=== PATIENT | male | born 1965 | race Caucasian/White ===

== ENCOUNTER → 2017-06-29 | Day surgery (SDC) | payer BC ==
[~2017-06-29] MED LIST: ATORVASTATIN CA10 MG PO; CHOLESTEROL PILL; FENTANYL CITRATE/PF 100MCG/2 ML INJ ONE; LIDOCAINE HCL 2% LOCAL INJ 5 ML SDV VIAL INJ ONE; MIDAZOLAM HCL 2 MG/2 ML VIAL ONE; PROPOFOL IV EMULSION 10 MG/ML 50 ML VIAL ONE; VITAMIN D3400 UNI1
--- NOTE | 2017-06-29 15:07 | Operative Report ---
DATE OF PROCEDURE: June 29, 2017 REFERRING PHYSICIAN: Dr. Faisal Lamb PROCEDURE PERFORMED: 1. Esophagogastroduodenoscopy with esophageal dilatation biopsies. 2. Colonoscopy with polypectomy. INDICATIONS FOR ESOPHAGOGASTRODUODENOSCOPY: Dysphagia, heartburn. INDICATIONS FOR COLONOSCOPY: Colorectal cancer screening. MEDICATION: Patient was done under MAC. Please see anesthesiologist's note. PROCEDURE: With the patient in lateral decubitus position, flexible fiberoptic Olympus gastroscope was introduced into the esophagus under direct visualization without any difficulty. Some longitudinal furrows and some concentric rings were noted in the esophagus, which were compatible with eosinophilic esophagitis, and biopsies were obtained. Two minute polyps were noted in the distal esophagus and biopsies were obtained. The esophagus was then dilated to size 52-[place] Mcbride. The scope was then advanced with ease into the stomach and mucosa overlying the antrum and the body revealed some patchy erythema and mild to moderate edema, and biopsies were obtained sent to stain for H. pylori. Some gastric polyps that were hyperplastic appearing were noted in the body and some were partially excised with cold biopsy forceps. The pylorus was of normal contour and shape. Was intubated with ease and the scope was advanced all the way to the 2nd portion of the duodenum. The scope was then withdrawn slowly. Mucosa overlying the proximal 2nd portion and the duodenal bulb appeared to be within normal limits. The scope was then withdrawn back into the stomach and retroflexed. The mucosa overlying the fundus and the cardia appeared to be within normal limits. The scope was then straightened out. The stomach was decompressed, the scope subsequently withdrawn. Patient tolerated the procedure well. IMPRESSION: 1. Rule out eosinophilic esophagitis. 2. Esophagus dilated to size 52-[place] Mcbride. 3. Distal esophageal polyps, biopsied. 4. Gastritis, biopsied. Biopsies sent stain for Helicobacter pylori. 5. Gastric polyps, some partially excised with a cold biopsy forceps. PLAN: Follow up histology. Initiate Protonix 40 mg 1 p.o. q.a.m. a.c. Patient was then turned around and after adequate lubrication of the anal canal, a flexible fiberoptic Olympus colonoscope was inserted into the rectum with ease and advanced all the way to the cecum. An approximately 4 mm sessile polyp was noted in the cecum that was snared and polypectomy site was hemoclipped prophylactically. The scope was then withdrawn slowly. One polyp was noted in the ascending colon that was hot biopsied. Three polyps were snared from the transverse colon. The descending and the sigmoid appeared to be within normal limits. Two polyps were hot biopsied from the rectum. The scope was then retroflexed into the distal rectum and small internal hemorrhoids were noted, none of which was actively bleeding. The scope was then straightened out. The rectosigmoid area as well as the distal rectal area were decompressed. Scope subsequently withdrawn. Patient tolerated procedure well. IMPRESSION: 1. Cecal polyp, snared. 2. Ascending colon polyp, hot biopsied. 3. Transverse colon polyps times 3, snared. 4. Rectal polyps times 2, hot biopsied. 5. Internal hemorrhoids, none actively bleeding. PLAN: Follow up histology. Initiate high-fiber, low-fat diet. Initiate high-fiber supplement. Patient will need a followup colonoscopy in 3 years. Job#: [id number] [place] cc:FAISAL LAMB MD
== END | disposition home or self-care (01) ==
LOC: OR 10:43
PROVIDERS: ATTEND Internal Medicine Gastroenterology
DX: Z12.11 Encounter for screening for malignant neoplasm of colon (principal); D12.0 Benign neoplasm of cecum; D12.3 Benign neoplasm of transverse colon; K62.1 Rectal polyp; K31.7 Polyp of stomach and duodenum; K29.70 Gastritis, unspecified, without bleeding; K20.9 Esophagitis, unspecified; K21.9 Gastro-esophageal reflux disease without esophagitis; K64.8 Other hemorrhoids; R00.1 Bradycardia, unspecified; I44.0 Atrioventricular block, first degree; R03.0 Elevated blood-pressure reading, without diagnosis of hypertension; Z01.810 Encounter for preprocedural cardiovascular examination; Z68.31 Body mass index [BMI] 31.0-31.9, adult; Z85.47 Personal history of malignant neoplasm of testis
CPT/HCPCS: 43239; 43450; 45384; 45385; 93005; J2001; J2250; 45378

== ENCOUNTER → 2019-04-04 | Outpatient (CLI) | payer BC ==
[~2019-04-04] MED LIST changes: -FENTANYL CITRATE/PF 100MCG/2 ML INJ ONE; -LIDOCAINE HCL 2% LOCAL INJ 5 ML SDV VIAL INJ ONE; -MIDAZOLAM HCL 2 MG/2 ML VIAL ONE; -PROPOFOL IV EMULSION 10 MG/ML 50 ML VIAL ONE
--- NOTE | 2019-04-04 15:20 | Diagnostic Imaging Report ---
Exam: Testicular ultrasound. Clinical History: Testicular nodule Findings: Sonographic evaluation of the testicles. The patient is status post right orchiectomy. The left testicle is normal in echogenicity and measures 4.9 x 2.0 x 3.7 cm. No intratesticular mass. The left epididymis measures 0.6 x 0.5 x 0.6 cm and appears unremarkable. Trace left hydrocele. Small left varicocele. No remarkable findings in the right testicle fossa. Impression: No testicular torsion. Trace left hydrocele. Small left varicocele. Signed by: Laura Dimas MD on 04/04/2019 3:16 PM
== END ==
LOC: US 13:07
PROVIDERS: ATTEND Family Medicine
DX: N43.3 Hydrocele, unspecified (principal); I86.1 Scrotal varices
CPT/HCPCS: 76870; 93976

== ENCOUNTER → 2019-10-08 | Day surgery (SDC) | payer BC, OTHER ==
[~2019-10-08] MED LIST changes: +EPHEDRINE SULFATE INJ 50 MG/ML VIAL ONE; +FENTANYL CITRATE/PF 100MCG/2 ML INJ ONE; +GLYCOPYRROLATE INJ 0.2 MG/ML VIAL ONE; +HYOSCYAMINE 0.125 MG TAB ONE; +KETAMINE HCL INJ 50 MG/ML 10 ML VIAL ONE; +LIDOCAINE HCL 2% LOCAL INJ 5 ML SDV VIAL INJ ONE; +MIDAZOLAM HCL 2 MG/2 ML VIAL ONE; +PROPOFOL IV EMULSION 10 MG/ML 20 ML VIAL ONE
[2019-10-08 10:40] VITALS: BP 116/75
--- NOTE | 2019-10-08 12:57 | Operative Report ---
DATE OF PROCEDURE: 10/08/2019 SURGEON: Bin Luna MD PROCEDURE: Colonoscopy with polypectomy. INDICATIONS FOR COLONOSCOPY: Surveillance colonoscopy, personal history of colon polyps. MEDICATIONS: The patient was done under MAC, please see anesthesiologist's note. PROCEDURE IN DETAIL: With the patient in the left lateral decubitus position, the flexible fiberoptic Olympus colonoscope was inserted into the rectum with ease and advanced all the way to the cecum. It was then withdrawn slowly, mucosa overlying the cecum and ascending colon appeared to be within normal limits. Two polyps were removed per cold biopsy forceps from the transverse colon. The descending colon appeared to be within normal limits. One polyp was hot biopsied from the sigmoid colon. The rectum appeared to be within normal limits. The scope was then retroflexed into the distal rectum and small internal hemorrhoids were noted, none of which was actively bleeding. The scope was then straightened out, it was subsequently withdrawn, and the patient tolerated the procedure well. IMPRESSION: 1. Transverse colon polyps x2, removed per cold biopsy forceps. 2. Sigmoid colon polyp, hot biopsied. 3. Internal hemorrhoids, none actively bleeding. PLAN: Follow up histology. Initiate high-fiber, low-fat diet. Initiate high-fiber supplement. The patient might benefit from a followup colonoscopy in 3 to 5 years. Bin Luna MD [facility] [place] /[id number] cc: Faisal Lamb MD
== END | disposition home or self-care (01) ==
LOC: OR 06:48
PROVIDERS: ATTEND Internal Medicine Gastroenterology
DX: Z09 Encounter for follow-up examination after completed treatment for conditions other than malignant neoplasm (principal); D12.3 Benign neoplasm of transverse colon; K64.8 Other hemorrhoids; K21.9 Gastro-esophageal reflux disease without esophagitis; E78.5 Hyperlipidemia, unspecified; Z91.013 Allergy to seafood; Z01.810 Encounter for preprocedural cardiovascular examination; Z01.812 Encounter for preprocedural laboratory examination; Z11.59 Encounter for screening for other viral diseases; Z85.47 Personal history of malignant neoplasm of testis
CPT/HCPCS: 45380; 45384; 87635; 93005; J2001; J2250; J2704; J3010

== ENCOUNTER 2020-04-26 13:32 | Emergency (ER) | payer BC ==
[~2020-04-26] VITALS: Ht 177.8 cm; Wt 90.7 kg
[~2020-04-26 13:32] MED LIST changes: -EPHEDRINE SULFATE INJ 50 MG/ML VIAL ONE; -FENTANYL CITRATE/PF 100MCG/2 ML INJ ONE; -GLYCOPYRROLATE INJ 0.2 MG/ML VIAL ONE; -HYOSCYAMINE 0.125 MG TAB ONE; -KETAMINE HCL INJ 50 MG/ML 10 ML VIAL ONE; -LIDOCAINE HCL 2% LOCAL INJ 5 ML SDV VIAL INJ ONE; -MIDAZOLAM HCL 2 MG/2 ML VIAL ONE; -PROPOFOL IV EMULSION 10 MG/ML 20 ML VIAL ONE
[2020-04-26 15:03] VITALS: BP 119/76
== END 2020-04-26 15:05 | disposition home or self-care (01) ==
LOC: ER 14:27
DX: U07.1 COVID-19 (principal); R06.02 Shortness of breath; R05 Cough
CPT/HCPCS: 99282

== ENCOUNTER → 2024-05-22 | Outpatient (REF) | payer BC ==
[~2024-05-22] MED LIST changes: +ALLOPURINOL100 MG PO; +LANSOPRAZOLE30 MG PO; +LOSARTAN POTAS100 MG PO
== END ==
LOC: US 13:06
PROVIDERS: ATTEND Nurse Practitioner
DX: R10.84 Generalized abdominal pain (principal); K92.1 Melena; Z86.0100 Personal history of colon polyps, unspecified
CPT/HCPCS: 76700; 76856

== ENCOUNTER → 2024-06-05 | Day surgery (SDC) | payer BC ==
[~2024-06-05] MED LIST changes: +EPHEDRINE SULFATE INJ 50 MG/ML VIAL ONE; +ESMOLOL HCL 100MG/10ML 10 MG/ML VIAL ONE; +FENTANYL CITRATE/PF 100MCG/2 ML INJ ONE; +GLUCAGON FOR INJ 1 MG VIAL ONE; +HYOSCYAMINE SULFATE 0.5 MG/ML INJ ONE; +LIDOCAINE HCL 2% LOCAL INJ 5 ML SDV VIAL INJ ONE; +PROPOFOL IV EMULSION 0 ML IV ONE; +PROPOFOL IV EMULSION 50 ML IV ONE
[2024-06-05] MEDS: LACTATED RINGER'S 1,000 ML ONE (10:48)
[2024-06-05 13:14] VITALS: TEMP 97.1
[2024-06-05 13:40] VITALS: BP 112/60; PULSE 86; RESP 18; O2SAT 98
[2024-06-05 13:59] LABS: CDIFF AG QUIK CHEK NEGATIVE (NEGATIVE); CDIFF TOX QUIK CHEK NEGATIVE (NEGATIVE); WBC,FECAL (FECAL LACTOFERRIN) POSITIVE (NEGATIVE)
[2024-06-06 06:45] LABS: C-REACTIVE PROTEIN 4 mg/L (0-10)
[2024-06-10 07:12] LABS: ENDOMYSIAL ANTIBODIES, IGA Negative (Negative)
[2024-06-10 15:11] LABS: IMMUNOGLOBULIN A 105 mg/dL (90-386); TISSUE TRANSGLUTAMINASE IGA AB <2 U/mL (0-3)
== END | disposition home or self-care (01) ==
LOC: OR 10:31
PROVIDERS: ATTEND Internal Medicine Gastroenterology
DX: K29.70 Gastritis, unspecified, without bleeding (principal); K31.7 Polyp of stomach and duodenum; K62.1 Rectal polyp; K52.9 Noninfective gastroenteritis and colitis, unspecified; K20.90 Esophagitis, unspecified without bleeding; Z86.0100 Personal history of colon polyps, unspecified; K62.89 Other specified diseases of anus and rectum; K64.8 Other hemorrhoids; Z71.3 Dietary counseling and surveillance; I10 Essential (primary) hypertension; Z71.89 Other specified counseling; Z91.013 Allergy to seafood; Z01.810 Encounter for preprocedural cardiovascular examination; Z79.899 Other long term (current) drug therapy; Z68.32 Body mass index [BMI] 32.0-32.9, adult; Z85.47 Personal history of malignant neoplasm of testis
CPT/HCPCS: 43239; 43251; 45380; 82784; 83516; 83630; 83993; 86140; 86256; 87045; 87177; 87324; 87328; 87449; 93005; J1610; J1980; J2003; J2470; J2704; J3010; J7121; 45378